=== PATIENT | female | born 1985 | race Caucasian/White ===

== ENCOUNTER 2019-04-12 05:46 | Emergency (ER) | payer OTHER ==
[2019-04-12] MEDS ORDERED: Benzocaine 20% Topical Spray UD MUCMEM ONE (06:03)
[2019-04-12] MEDS ORDERED: Lidocaine 2% Viscous Solution 15 ML Cup PO ONE (06:03)
--- NOTE | 2019-04-12 06:17 | EDM.PDOC ---
ED HPI GENERAL MEDICAL PROBLEM - General Chief Complaint: ENT Problem Stated Complaint: SWELLING ON LEFT SIDE OF FACE Time Seen by Provider: 04/12/19 06:03 - History of Present Illness INITIAL COMMENTS - FREE TEXT/NARRATIVE: HISTORY AND PHYSICAL: History of present illness: The patient is a 33-year-old female who presents with complaints of pain of increased swelling to the left side of her jaw and face after being started on penicillin antibiotics for dental swelling/potential dental problems. She was seen 2 days ago for swelling of the left side of her jaw and discomfort at an urgent care in [facility] and was referred to her dentist who did do a dental x-ray and said that they do not feel like the tooth is abscessed but she has an area where it teeth have been extracted before and the dentist was not sure if there was still some retained tooth fragments or injury to the bone that could be causing the swelling but she felt like she could not assess things clearly with the swelling and wanted her to go on antibiotics. She was placed on penicillin and also given [place] for the pain and was told that the swelling worsened that she should come to the emergency department and get a different antibiotic. The patient says she's had no fevers chills or trouble swallowing and the swelling has worsened. She has no abdominal pain nausea or vomiting. She tells me she is only here to get a different antibiotic and she has a scheduled follow-up appointment with her dentist next Wednesday. The patient denies as she just finished her menstrual cycle Review of systems: As per history of present illness and below otherwise all systems reviewed and negative. Past medical history: As per history of present illness and as reviewed below otherwise noncontributory. Surgical history: As per history of present illness and as reviewed below otherwise noncontributory. Social history: No reported history of drug or alcohol abuse. Family history: As per history of present illness and as reviewed below otherwise noncontributory. Physical exam: General: Well-developed well-nourished female who is nontoxic and vital signs are noted by me HEENT: Atraumatic, normocephalic, pupils reactive, negative for conjunctival pallor or scleral icterus, mucous membranes moist, throat clear, neck supple, nontender, trachea midline. There is visible facial swelling at the left mandible extending into the proximal soft tissue neck with tenderness in this region but no crepitus or fluctuance. There is no nuchal rigidity and no cervical adenopathy and this area of soft tissue swelling is somewhat firm. There is no warmth or color change. On intraoral expectoration there is some swelling in the left lower side past the last pre molar and some tenderness in this region. There are no dental caries seen in this area and there are some premolars that are missing and the gum in this area is not swollen or tender Lungs: Clear to auscultation, breath sounds equal bilaterally, chest nontender. Heart: S1S2, regular rate and rhythm, no murmurs Abdomen: Deferred Pelvis: Deferred Genitourinary: Deferred. Rectal: Deferred. Extremities: Atraumatic, full range of motion. Neurovascular unremarkable. Neuro: Awake, alert, oriented. Cranial nerves II through XII unremarkable. Cerebellum unremarkable. Motor and sensory unremarkable throughout. Exam nonfocal. Diagnostics: [] Therapeutics: Dental balls I did discuss with the patient that we can change her antibiotic to clindamycin and I have also advised her to suck on sour candy as the area of swelling and tenderness is also consistent with a possible blockage of one of her salivary glands. She has a scheduled follow-up appointment with her dentist advised her on reasons to return to the ED and to connect with her dentist to let her know what is going on It appeared to me that the patient was only here to get a change of antibiotics and is comfortable with her care plan set up her dentist Impression: Facial swelling/oral infection Definitive disposition and diagnosis as appropriate pending reevaluation and review of above. 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 Musculoskeletal History: Reports: None Neurological History: Reports: None Psychiatric History: Reports: None Endocrine/Metabolic History: Reports: None Hematologic History: Reports: None Immunologic History: Reports: None Oncologic (Cancer) History: Reports: None Dermatologic History: Reports: None - Infectious Disease History Infectious Disease History: Reports: None - Past Surgical History Head Surgeries/Procedures: Reports: None Social & Family History - Family History Family Medical History: Noncontributory - Tobacco Use Smoking Status *Q: Current Every Day Smoker Years of Tobacco use: 15 Packs/Tins Daily: 0.5 - Caffeine Use Caffeine Use: Reports: Coffee - Recreational Drug Use Recreational Drug Use: No ED ROS GENERAL - Review of Systems Review Of Systems: ROS reveals no pertinent complaints other than HPI. ED EXAM, GENERAL - Physical Exam Exam: See Below (See dictation) Course - Vital Signs Last Recorded V/S: Last Vital Signs Temp 36.5 C 04/12/19 06:02 Pulse 79 04/12/19 06:02 Resp 18 04/12/19 06:02 BP 127/70 04/12/19 06:02 Pulse Ox 98 04/12/19 06:02 - Orders/Labs/Meds Meds: Medications Discontinued Medications Generic Name Dose Route Start Last Admin Trade Name Abbey PRN Reason Stop Dose Admin Benzocaine 2 each 04/12/19 06:03 Hurricaine One 20% MUCMEM 04/12/19 06:04 ONETIME ONE Lidocaine HCl 15 ml 04/12/19 06:03 Xylocaine 2% Viscous PO 04/12/19 06:04 ONETIME ONE Departure - Departure Time of Disposition: 06:17 Disposition: Home, Self-Care 01 Condition: Good Clinical Impression: Oral infection, Facial swelling - Discharge Information Referrals: PCP,None [Primary Care Provider] - Additional Instructions: The following information is given to patients seen in the emergency department who are being discharged to home. This information is to outline your options for follow-up care. We provide all patients seen in our emergency department with a follow-up referral. The need for follow-up, as well as the timing and circumstances, are variable depending upon the specifics of your emergency department visit. If you don't have a primary care physician on staff, we will provide you with a referral. We always advise you to contact your personal physician following an emergency department visit to inform them of the circumstance of the visit and for follow-up with them and/or the need for any referrals to a consulting specialist. The emergency department will also refer you to a specialist when appropriate. This referral assures that you have the opportunity for followup care with a specialist. All of these measure are taken in an effort to provide you with optimal care, which includes your followup. Under all circumstances we always encourage you to contact your private physician who remains a resource for coordinating your care. When calling for followup care, please make the office aware that this follow-up is from your recent emergency room visit. If for any reason you are refused follow-up, please contact the [facility] emergency department at and ask to speak to the emergency department charge nurse. [facility] Primary care- Internal Medicine and Family [address] [address] Use ice to the face and take the medications you were given her dentist for pain management or use the dental balls were given here in the ED. Please stop the antibiotics that were started by her dentist, penicillin and start the new antibiotics prescribed. Today clindamycin. You were given the clindamycin from [facility]. Please be sure to keep your appointment for follow-up with your dentist and connect with her for any new developments or changes in your symptoms. Return to ER as needed and as discussed
== END 2019-04-12 06:30 | disposition home or self-care (01) ==
LOC: MW.ED 05:46
DX: K04.7 Periapical abscess without sinus (principal); F17.210 Nicotine dependence, cigarettes, uncomplicated
CPT/HCPCS: 99283; A9270

== ENCOUNTER 2019-04-14 05:48 | Emergency (ER) | payer OTHER ==
[2019-04-14] MEDS ORDERED: Sodium Chloride 0.9% 10 ML Syringe FLUSH PRN (06:11)
[2019-04-14] MEDS ORDERED: Sodium Chloride 0.9% 2.5 ML Syringe FLUSH PRN (06:11)
[2019-04-14] MEDS ORDERED: Sodium Chloride 0.9% 1,000 ML IV SCH (06:30)
--- NOTE | 2019-04-14 06:32 | EDM.PDOC ---
<Joe Perkins - Last Filed: 04/14/19 06:33> ED HPI GENERAL MEDICAL PROBLEM - General Stated Complaint: SWELLING/PAIN IN FACE/NECK AREA Time Seen by Provider: 04/14/19 06:13 - History of Present Illness INITIAL COMMENTS - FREE TEXT/NARRATIVE: History of Present Illness: Greer is a 33 year old female who presents to the emergency department for the evaluation of persistent swelling & pain to the left side of her jaw and face. She was initially started on penicillin for dental swelling/potential dental problem. She was seen by a dentist and a dental xray was performed. At that time they did not feel like the the tooth is abscessed but she has an area where the had a previous extraction and the dentist is unsure if there is some retained tooth fragments or injury to the bone which can be leading to the swelling but felt like they could not assess things clearly with the swelling present and wanted her to be placed on antibiotics. The dentist started the patient on penicillin and was instructed to present to the emergency department if they swelling persisted as she made need a change in antibiotic therapy. The patient presented to the emergency department two days ago with worsen swelling. She had no fever, troubles or swallowing. Her antibiotic therapy was changed to clindamycin. She feels as her swelling continues to worsen. At approximately 0530 this morning the patient awoke from sleep with increase facial/jaw pain and is now having trouble swallowing. She denies having any difficulty breathing or episodes of drooling. Review of systems: As per history of present illness and below otherwise all systems reviewed and negative. Past medical History: As per history of present illness and as reviewed below otherwise noncontributory. Surgical History: As per history of present illness and as reviewed below otherwise noncontributory. Family history: No reported history of drug or alcohol abuse. Physical Exam: General: Well- developed well- nourished. Her voice is soft spoken but is not muffled. HEENT: Atraumatic, normocephalic, pupils reactive, There is visible facial swelling at the left angle mandible extending medially and inferiorly the soft tissue of the neck which is tender to palpation. Upon oral inspect there is some swelling past the pre molar. The left tonsil is visible without exudates. Lungs: Clear to auscultation, breath sounds equal bilaterally, chest nontender. Heart: S1S2, regular rate and rhythm, no overt murmurs. Abdomen: Soft, nondistended, nontender. Negative for masses or hepatosplenomegaly. Normal abdominal bowel sounds. Pelvis: Deferred Genitourinary: Deferred Rectal: Deferred Extremities: Atraumatic, full range of motion without defects or deficits. Neurovascular unremarkable. Neuro: Awake, alert, Cranial nerves II through XII unremarkable. Cerebellum unremarkable. Motor and sensory unremarkable throughout. Exam nonfocal. Skin: Normal turgor no overt rash or lesions. 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 Pain Score (Numeric/FACES): 9 - Related Data Allergies Allergy/AdvReac Type Severity Reaction Status Date / Time No Known Allergies Allergy Verified 04/14/19 06:00 Home Meds: Home Meds Acetaminophen/HYDROcodone [[place] 325-10 MG] 1 tab PO ASDIRECTED PRN 04/12/19 [ History] Clindamycin HCl [Cleocin HCl] 1 cap PO QID 04/14/19 [History] Past Medical History HEENT History: Reports: None Cardiovascular History: Reports: None Respiratory History: Reports: None Gastrointestinal History: Reports: None Genitourinary History: Reports: None TOE STAPLER History: Reports: None Musculoskeletal History: Reports: None Neurological History: Reports: None Psychiatric History: Reports: None Endocrine/Metabolic History: Reports: None Hematologic History: Reports: None Immunologic History: Reports: None Oncologic (Cancer) History: Reports: None Dermatologic History: Reports: None - Infectious Disease History Infectious Disease History: Reports: None - Past Surgical History Head Surgeries/Procedures: Reports: None Social & Family History - Family History Family Medical History: Noncontributory - Caffeine Use Caffeine Use: Reports: Coffee Course - Vital Signs Last Recorded V/S: Last Vital Signs Temp 96.7 F 04/14/19 05:55 Pulse 91 04/14/19 05:55 Resp 18 04/14/19 05:55 BP 121/77 04/14/19 05:55 Pulse Ox 100 04/14/19 05:55 - Orders/Labs/Meds Orders: Active Orders 24 hr Category Date Time Status Soft Tissue Neck w Cont [CT] Stat Exams 04/14/19 06:11 Taken Clindamycin Phosphate in D5W [Cleocin in D5W] 600 mg Med 04/14/19 08:28 Active Premix Bag 50 bag IV ONETIME Sodium Chloride 0.9% [Normal Saline] 1,000 ml Med 04/14/19 06:30 Active IV ASDIRECTED Sodium Chloride 0.9% [Saline Flush] Med 04/14/19 06:11 Active 10 ml FLUSH ASDIRECTED PRN Sodium Chloride 0.9% [Saline Flush] Med 04/14/19 06:11 Active 2.5 ml FLUSH ASDIRECTED PRN Saline Lock Insert [OM.PC] Stat Oth 04/14/19 06:11 Ordered Medication Orders Sodium Chloride (Normal Saline) 1,000 mls @ 125 mls/hr IV ASDIRECTED CHERRI Last Infusion: 04/14/19 07:03 Dose: 125 mls/hr Admin: 04/14/19 06:32 Dose: 125 mls/hr Clindamycin Phosphate 600 mg/ (Premix) 50 mls @ 100 mls/hr IV ONETIME ONE Stop: 04/14/19 08:57 Sodium Chloride (Saline Flush) 10 ml FLUSH ASDIRECTED PRN PRN Reason: Keep Vein Open Sodium Chloride (Saline Flush) 2.5 ml FLUSH ASDIRECTED PRN PRN Reason: Keep Vein Open Labs: Laboratory Tests 04/14/19 04/14/19 04/14/19 Range/Units 06:25 06:25 06:25 WBC 10.38 (4.0-11.0) K/uL RBC 4.56 (4.30-5.90) M/uL Hgb 13.6 (12.0-16.0) g/dL Hct 41.0 (36.0-46.0) % MCV 89.9 (80.0-98.0) fL MCH 29.8 (27.0-32.0) pg MCHC 33.2 (31.0-37.0) g/dL RDW Std Deviation 41.7 (28.0-62.0) fl RDW Coeff of Ganesh 13 (11.0-15.0) % Plt Count 220 (150-400) K/uL MPV 11.40 (7.40-12.00) fL Neut % (Auto) 75.9 (48.0-80.0) % Lymph % (Auto) 12.8 L (16.0-40.0) % [place] % (Auto) 9.6 (0.0-15.0) % Eos % (Auto) 1.6 (0.0-7.0) % Baso % (Auto) 0.1 (0.0-1.5) % Neut # (Auto) 7.9 H (1.4-5.7) K/uL Lymph # (Auto) 1.3 (0.6-2.4) K/uL [place] # (Auto) 1.0 H (0.0-0.8) K/uL Eos # (Auto) 0.2 (0.0-0.7) K/uL Baso # (Auto) 0.0 (0.0-0.1) K/uL Nucleated RBC % 0.0 /100WBC Nucleated RBCs # 0 K/uL Sodium 140 (136-145) mmol/L Potassium 4.1 (3.5-5.1) mmol/L Chloride 105 (98-107) mmol/L Carbon Dioxide 26.6 (21.0-32.0) mmol/L BUN 15 (7.0-18.0) mg/dL Creatinine 0.6 (0.6-1.0) mg/dL Est Cr Clr Drug Dosing 118.88 mL/min Estimated GFR (MDRD) > 60.0 ml/min Glucose 95 (74-106) mg/dL Calcium 9.3 (8.5-10.1) mg/dL Total Bilirubin 0.5 (0.2-1.0) mg/dL AST 12 L (15-37) IU/L ALT 18 (14-63) IU/L Alkaline Phosphatase 53 (46-116) U/L Total Protein 7.6 (6.4-8.2) g/dL Albumin 3.6 (3.4-5.0) g/dL Globulin 4.0 (2.6-4.0) g/dL Albumin/Globulin Ratio 0.9 (0.9-1.6) Urine HCG, Qual NEGATIVE (NEGATIVE) Meds: Medications Generic Name Dose Route Start Last Admin Trade Name Freq PRN Reason Stop Dose Admin Sodium Chloride 1,000 mls @ 125 mls/hr 04/14/19 06:30 04/14/19 07:03 Normal Saline IV 125 mls/hr ASDIRECTED CHERRI Infusion Clindamycin Phosphate 600 mg/ 50 mls @ 100 mls/hr 04/14/19 08:28 Premix IV 04/14/19 08:57 ONETIME ONE Sodium Chloride 10 ml 04/14/19 06:11 Saline Flush FLUSH ASDIRECTED PRN Keep Vein Open Sodium Chloride 2.5 ml 04/14/19 06:11 Saline Flush FLUSH ASDIRECTED PRN Keep Vein Open Discontinued Medications Generic Name Dose Route Start Last Admin Trade Name Freq PRN Reason Stop Dose Admin Dexamethasone 10 mg 04/14/19 08:28 Dexamethasone IVPUSH 04/14/19 08:29 ONETIME ONE Iopamidol 100 ml 04/14/19 07:19 04/14/19 07:19 Isovue-370 (76%) IVPUSH 04/14/19 07:20 100 ml ONETIME ONE Administration Departure - Departure Disposition: DC/Tfer to [facility] 02 Clinical Impression: Submandibular abscess - Discharge Information Referrals: PCP,None [Primary Care Provider] - - My Orders Last 24 Hours: My Active Orders 04/14/19 08:28 Clindamycin Phosphate in D5W [Cleocin in D5W] 600 mg Premix Bag 50 bag IV ONETIME - Assessment/Plan Last 24 Hours: My Active Orders 04/14/19 08:28 Clindamycin Phosphate in D5W [Cleocin in D5W] 600 mg Premix Bag 50 bag IV ONETIME <Jagruti Friedman - Last Filed: 04/14/19 06:59> ED HPI GENERAL MEDICAL PROBLEM - History of Present Illness INITIAL COMMENTS - FREE TEXT/NARRATIVE: Dr. Friedman dictating addendum note is in the supervising physician on this case. I personally saw this patient 2 days ago when she presented for an antibiotic change due to swelling of her left jaw area. On that evaluation she did have an ill-defined area of swelling and induration originating at the angle and body of the mandible on the left and extending slightly inferiorly and there was no cervical adenopathy no thyromegaly and no extension towards the midline. She was nontoxic at that time and she was very specific that she had a care plan in place with her dentist and she merely wanted to change in antibiotic treatment. We started her on clindamycin and she now presents with above history. On my personal examination the area of induration that she had 2 days ago has extended more medially and inferiorly and is still indurated and ill-defined. There is more tenderness in this area. I was able to get a brief look into the posterior oropharynx and the tonsil on the left side does not appear to be swollen or erythematous and there are no exudates. The patient is handling her secretions and his swallowing and is able to speak without hoarse or muffled voice. We will proceed with above workup and further evaluate the soft tissue neck with the CAT scan. The patient is a smoker of tobacco but denies any other drug use. This case was endorsed to Dr. Winston at 7 AM to follow-up outstanding labs and the CAT scan of the neck and disposition pending those results. ED ROS ENT - Review of Systems Review Of Systems: ROS reveals no pertinent complaints other than HPI. ED EXAM, ENT - Physical Exam Exam: See Below (See dictation) Course - Orders/Labs/Meds Labs: Laboratory Tests 04/14/19 04/14/19 04/14/19 Range/Units 06:25 06:25 06:25 WBC 10.38 (4.0-11.0) K/uL RBC 4.56 (4.30-5.90) M/uL Hgb 13.6 (12.0-16.0) g/dL Hct 41.0 (36.0-46.0) % MCV 89.9 (80.0-98.0) fL MCH 29.8 (27.0-32.0) pg MCHC 33.2 (31.0-37.0) g/dL RDW Std Deviation 41.7 (28.0-62.0) fl RDW Coeff of Ganesh 13 (11.0-15.0) % Plt Count 220 (150-400) K/uL MPV 11.40 (7.40-12.00) fL Neut % (Auto) 75.9 (48.0-80.0) % Lymph % (Auto) 12.8 L (16.0-40.0) % [place] % (Auto) 9.6 (0.0-15.0) % Eos % (Auto) 1.6 (0.0-7.0) % Baso % (Auto) 0.1 (0.0-1.5) % Neut # (Auto) 7.9 H (1.4-5.7) K/uL Lymph # (Auto) 1.3 (0.6-2.4) K/uL [place] # (Auto) 1.0 H (0.0-0.8) K/uL Eos # (Auto) 0.2 (0.0-0.7) K/uL Baso # (Auto) 0.0 (0.0-0.1) K/uL Nucleated RBC % 0.0 /100WBC Nucleated RBCs # 0 K/uL Sodium 140 (136-145) mmol/L Potassium 4.1 (3.5-5.1) mmol/L Chloride 105 (98-107) mmol/L Carbon Dioxide 26.6 (21.0-32.0) mmol/L BUN 15 (7.0-18.0) mg/dL Creatinine 0.6 (0.6-1.0) mg/dL Est Cr Clr Drug Dosing 118.88 mL/min Estimated GFR (MDRD) > 60.0 ml/min Glucose 95 (74-106) mg/dL Calcium 9.3 (8.5-10.1) mg/dL Total Bilirubin 0.5 (0.2-1.0) mg/dL AST 12 L (15-37) IU/L ALT 18 (14-63) IU/L Alkaline Phosphatase 53 (46-116) U/L Total Protein 7.6 (6.4-8.2) g/dL Albumin 3.6 (3.4-5.0) g/dL Globulin 4.0 (2.6-4.0) g/dL Albumin/Globulin Ratio 0.9 (0.9-1.6) Urine HCG, Qual NEGATIVE (NEGATIVE) <Ashtyn Winston - Last Filed: 04/14/19 08:39> ED HPI GENERAL MEDICAL PROBLEM - History of Present Illness INITIAL COMMENTS - FREE TEXT/NARRATIVE: 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 Her CT showed:2.5 x 1.4 x 1.3 cm abscess or cystic structure along the anteromedial margin of the left submandibular gland. Inflammatory fat stranding in the lower left face, upper left neck, and submandibular subcutaneous fat. Inflammatory fat stranding in the left submandibular and sublingual spaces. Possible inflammatory change in the left parapharyngeal space with soft tissue thickening and mild effacement of the airway on the left. She was given IV dexamethasone and clindamycin as well as IV hydration Dr. Geovany Quevedo was consulted however he is not available today. Liz Laguerre was consulted and will be transferred to the emergency room to Dr. Giovanni chen ambulance Patient remained stable while in the ED. Departure - Departure Time of Disposition: 08:38 Condition: Good - Discharge Information *PRESCRIPTION DRUG MONITORING PROGRAM REVIEWED*: No *COPY OF PRESCRIPTION DRUG MONITORING REPORT IN PATIENT RITA: No
[2019-04-14 06:56] LABS: BLOOD UREA NITROGEN,BUN 15 mg/dL (7.0-18.0); CARBON DIOXIDE,CO2 26.6 mmol/L (21.0-32.0); CHLORIDE,CL 105 mmol/L (98-107); GLUCOSE RANDOM 95 mg/dL (74-106); POTASSIUM,K 4.1 mmol/L (3.5-5.1); SODIUM,NA 140 mmol/L (136-145)
[2019-04-14] MEDS ORDERED: Iopamidol 755 Mg/ML 100 ML Bottle IVPUSH ONE (07:19)
[2019-04-14] MEDS ORDERED: Clindamycin Phosphate in D5W 600 MG in Premix Bag 50 BAG IV ONE ×2 (08:28)
[2019-04-14] MEDS ORDERED: Dexamethasone 10 MG/ML SDV IVPUSH ONE (08:28)
--- NOTE | 2019-04-14 12:06 | CT ---
INDICATION: Left-sided facial pain and swelling extending into the neck. COMPARISON: None available TECHNIQUE: CT examination of the neck is performed using spiral technique during the uneventful intravenous administration of 100 cc of Isovue 370. 3 mm thick axial sections were made along with coronal and sagittal sections. Please note that all CT scans at this facility use dose modulation, iterative reconstruction, and/or weight-based dosing when appropriate to reduce radiation dose to as low as reasonably achievable. FINDINGS: There is cystic structure consistent with an abscess located along the anterior margin of the left submandibular gland measuring 2.0 x 1.2 x 2.2 centimeters. There is associated soft tissue stranding of the left inferior facial subcutaneous tissues, along with reactive left submandibular, sublingual, and superior jugular chain lymph nodes. The lymph nodes are not large enough to be described as lymphadenopathy. The left submandibular gland is swollen, measuring 3.2 x 2.8 x 4.1 centimeters, compared to the normal sized right submandibular gland which measures 3.0 x 1.9 by 4.4 centimeters. The hypopharyngeal airway structures are shifted towards the right by the soft tissue swelling, and there is mild effacement of the left vallecula. There is no sign of impending airway compromise. The airway structures are otherwise normal in appearance. The rest of the salivary glands are normal in appearance. There is no sign of additional cervical mass or adenopathy on today`s study. The visualized posterior fossa, mastoids, skull base, orbits, and paranasal sinuses are normal in appearance. The great vessels are unremarkable. The thyroid gland is normal in appearance. The visualized upper chest is clear. The visualized upper mediastinum is normal in appearance. There is mild C5-6 disc degenerative disease with mild diffuse disc bulging and posterior osteophytic ridging which may be prominence not to impinge upon the anterior cervical cord. Moderate right and mild left foraminal stenosis from uncovertebral joint hypertrophy. IMPRESSION: Swelling of the left submandibular gland with probable abscess along the anterior margin measuring 2.0 x 1.2 x 2.2 centimeters. Reactive left submandibular, sublingual, and superior jugular chain lymphadenopathy. No signs of airway compromise. Please note that all CT scans at this facility use dose modulation, iterative reconstruction, and/or weight-based dosing when appropriate to reduce radiation dose to as low as reasonably achievable. Dictated by Deacon Mendoza MD @ Apr 14 2019 11:55AM Signed by Dr. Deacon Mendoza @ Apr 14 2019 12:04PM
== END 2019-04-14 09:54 ==
LOC: MW.ED 05:48
DX: K12.2 Cellulitis and abscess of mouth (principal)
CPT/HCPCS: 36415; 70491; 80053; 81025; 85025; 96361; 96365; 96375; 99285; J1100; J3490; J7040; Q9967